=== PATIENT | female | born 1990 | race Caucasian/White ===

== ENCOUNTER 2019-10-05 07:19 | Inpatient (IN) | payer MEDICAID ==
[~2019-10-05 07:19] MED LIST: Lidocaine 1.5% with EPINEPHrine 1:200,000 5 ML Amp ONE
[2019-10-05] MEDS ORDERED: Sodium Chloride 0.9% 10 ML Syringe FLUSH PRN (07:50)
[2019-10-05] MEDS ORDERED: Ondansetron 4 MG/2 ML SDV IVPUSH PRN ×2 (07:50→10:54)
--- NOTE | 2019-10-05 07:54 | PCM.LDHP ---
L&D History of Present Illness - General Date of Service: 10/05/19 Admit Problem/Dx: Patient Status Order with Admit Dx/Problem 10/05/19 07:50 Patient Status [ADT] Routine Admission Diagnosis/Problem Admission Diagnosis/Problem Normal in third trimester Source of Information: Patient History Limitations: Reports: No Limitations - History of Present Illness Introduction:: 28 y/o at 39 2/7 wks who presents for elective IOL. Doing well today. No contractions. No concerns - Related Data Allergies/Adverse Reactions: Allergies Allergy/AdvReac Type Severity Reaction Status Date / Time No Known Allergies Allergy Verified 10/05/19 07:38 Home Medications: Home Meds Pnv No.95/Ferrous Fum/Folic AC [ Tablet] 1 each PO DAILY 12/17/17 [ History] Acetaminophen [Tylenol] 650 mg PO Q4H PRN tablet 04/09/18 [Rx] Calcium Carbonate [Tums] 500 mg PO 10/05/19 [History] Ferrous Sulfate [Iron] 325 mg PO 10/05/19 [History] Ranitidine [Zantac] 150 mg PO BID 10/05/19 [History] polyethylene glycoL 3350 [MiraLAX] 17 gm PO 10/05/19 [History] Past Medical History - Past Health History Medical/Surgical History: Denies Medical/Surgical History 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: , Spontaneous : 4 Para: 2 LMP (Approximate): Social & Family History - Family History Family Medical History: Noncontributory - Tobacco Use Smoking Status *Q: Former Smoker - Caffeine Use Caffeine Use: Reports: None - Alcohol Use Alcohol Use History: No - Recreational Drug Use Recreational Drug Use: No H&P Review of Systems - Review of Systems: Review Of Systems: See Below General: Reports: No Symptoms Pulmonary: Reports: No Symptoms Cardiovascular: Reports: No Symptoms Gastrointestinal: Reports: No Symptoms Genitourinary: Reports: No Symptoms Musculoskeletal: Reports: No Symptoms Psychiatric: Reports: No Symptoms Neurological: Reports: No Symptoms L&D Exam - Exam Exam: See Below - Vital Signs Vital Signs: Last Vital Signs Temp 36.3 C 10/05/19 07:24 Pulse 111 H 10/05/19 07:24 Resp 14 10/05/19 07:24 BP 131/82 10/05/19 07:24 Pulse Ox 98 10/05/19 07:24 Weight: 116.573 kg - OB Specific Contraction Intensity: Irritability Movement: Active Heart Tones: Present Heart Tones per Min: 135 Heart Rate (FHR) Variability: Moderate (6-25 bmp) Presentation: Vertex - Neal Score Neal Score Cervix Position: Posterior Neal Score Consistency: Soft Neal Score Effacement: 31-50% Neal Score Dilation: 1-2 cm Neal Score Infant's Station: -2 Neal Score Total: 5 - Exam General: Alert, Oriented, Cooperative Lungs: Clear to Auscultation, Normal Respiratory Effort Cardiovascular: Regular Rate, Regular Rhythm GI/Abdominal Exam: Soft, Non-Tender Genitourinary: Normal external exam Extremities: Normal Inspection Skin: Warm, Dry, Intact - Patient Data Result Diagrams: 10/05/19 08:05 - Problem List (1) 39 weeks gestation of SNOMED Code(s): 84711261 ICD Code: Z3A.39 - 39 WEEKS GESTATION OF Status: Acute Current Visit: Yes (2) GBS (group B Streptococcus carrier), +RV culture, currently SNOMED Code(s): 9385772657808, 564854207, 2738868935583 ICD Code: O99.820 - STREPTOCOCCUS B CARRIER STATE COMPLICATING Status: Acute Current Visit: Yes Problem List Initiated/Reviewed/Updated: Yes Orders Last 24hrs: Active Orders 24 hr Category Date Time Status Patient Status [ADT] Routine ADT 10/05/19 07:50 Ordered Activity as Tolerated [RC] PFP Care 10/05/19 07:50 Ordered Communication Order [RC] ASDIRECTED Care 10/05/19 07:50 Ordered Communication Order [RC] ASDIRECTED Care 10/05/19 07:50 Ordered Communication Order [RC] ASDIRECTED Care 10/05/19 07:50 Ordered Heart Tones [RC] ASDIRECTED Care 10/05/19 07:51 Ordered Monitoring [RC] INTERMITTENT Care 10/05/19 07:50 Ordered Non Stress Test [RC] PER UNIT ROUTINE Care 10/05/19 07:50 Ordered Notify Provider [RC] ASDIRECTED Care 10/05/19 07:50 Ordered Notify Provider [RC] PRN Care 10/05/19 07:50 Ordered Peripheral IV Care [RC] . DIRECTED Care 10/05/19 07:51 Ordered Vaginal Exam [RC] ASDIRECTED Care 10/05/19 07:50 Ordered Vital Signs [RC] ASDIRECTED Care 10/05/19 07:50 Ordered Regular Diet [DIET] Diet 10/05/19 Breakfast Ordered CBC W/O DIFF,HEMOGRAM [HEME] Routine Lab 10/05/19 07:50 Ordered RAPID PLASMA REAGIN,RPR [CHEM] Routine Lab 10/05/19 07:50 Ordered TYPE AND SCREEN [BBK] Routine Lab 10/05/19 07:50 Ordered Lactated Ringers [Ringers, Lactated] 1,000 ml Med 10/05/19 08:00 Ordered IV ASDIRECTED Ondansetron [Zofran] Med 10/05/19 07:50 Ordered 4 mg IVPUSH Q4H PRN Oxytocin/Lactated Ringers [Pitocin in LR 10 Units/1,000 Med 10/05/19 08:00 Ordered ML] 10 unit in 1,000 ml IV .CONTINUOUS Oxytocin/Lactated Ringers [Pitocin in LR 10 Units/1,000 Med 10/05/19 08:00 Ordered ML] 10 unit in 1,000 ml IV TITRATE Sodium Chloride 0.9% [Saline Flush] Med 10/05/19 07:50 Ordered 10 ml FLUSH ASDIRECTED PRN Electronic Heart Tones Ext w TOCO [WOMSER] Oth 10/05/19 07:50 Ordered Routine Electronic Heart Tones Internal [WOMSER] Per Unit Oth 10/05/19 07:50 Ordered Routine Peripheral IV Insertion Adult [OM.PC] Routine Oth 10/05/19 07:50 Ordered Assessment/Plan Comment:: * Labs * GBS positive, start ampicillin * Miller bulb placed and will start Pitocin. AROM when able * Pain management per patient preference * Anticipate
[2019-10-05] MEDS ORDERED: Oxytocin/Lactated Ringers 10 UNIT/1,000 ML BAG IV SCH ×2 (08:00)
[2019-10-05] MEDS ORDERED: Ampicillin 2 GM in Sodium Chloride 0.9% 100 ML IV ONE (08:02)
[2019-10-05] MEDS ORDERED: Ampicillin 2 GM AdvVial IV ONE (08:06)
[2019-10-05] MEDS: Lactated Ringers 1,000 ML IV SCH ×3 (08:08→16:01)
[2019-10-05] MEDS ORDERED: fentaNYL 100 MCG/2 ML SDV EPIDUR PRN (10:54)
[2019-10-05] MEDS ORDERED: ePHEDrine 50 MG/ML SDV IVPUSH PRN (10:54)
--- NOTE | 2019-10-05 10:57 | PCM.PREANE ---
<Keisha Rush - Last Filed: 10/05/19 10:55> Preanesthetic Assessment - Anesthesia/Transfusion/Family Hx Anesthesia History: Prior Anesthesia Without Reaction Family History of Anesthesia Reaction: No Transfusion History: No Prior Transfusion(s) Intubation History: Unknown - Review of Systems General: No Symptoms Pulmonary: No Symptoms Cardiovascular: No Symptoms Gastrointestinal: No Symptoms (GERD) Neurological: No Symptoms Other: Reports: None - Physical Assessment NPO Status Date: 10/05/19 Vital Signs: Last Vital Signs Temp 97.4 F 10/05/19 07:24 Pulse 111 H 10/05/19 07:24 Resp 14 10/05/19 07:24 BP 131/82 10/05/19 07:24 Pulse Ox 98 10/05/19 07:24 Height: 1.7 m Weight: 116.573 kg ASA Class: 2 Mental Status: Alert & Oriented x3 Airway Class: Mallampati = 2 Dentition: Reports: Normal Dentition, Caries Thyro-Mental Finger Breadths: 3 Mouth Opening Finger Breadths: 3 ROM/Head Extension: Full Lungs: Clear to Auscultation, Normal Respiratory Effort Cardiovascular: Regular Rate, Regular Rhythm, No Murmurs - Lab Values: Laboratory Last Values WBC 6.42 K/mm3 (3.98-10.04) 10/05/19 08:05 RBC 4.49 M/mm3 (3.98-5.22) 10/05/19 08:05 Hgb 12.4 gm/dl (11.2-15.7) D 10/05/19 08:05 Hct 37.8 % (34.1-44.9) 10/05/19 08:05 MCV 84.2 fl (79.4-94.8) D 10/05/19 08:05 MCH 27.6 pg (25.6-32.2) 10/05/19 08:05 MCHC 32.8 g/dl (32.2-35.5) 10/05/19 08:05 RDW Std Deviation 45.2 fL (36.4-46.3) 10/05/19 08:05 Plt Count 193 K/mm3 (182-369) 10/05/19 08:05 MPV 11.1 fl (9.4-12.3) 10/05/19 08:05 Blood Type A POSITIVE 10/05/19 08:05 Gel Antibody Screen Negative 10/05/19 08:05 Above labs reviewed and noted and within acceptable ranges to proceed with epidural if desired. - Allergies Allergies/Adverse Reactions: Allergies Allergy/AdvReac Type Severity Reaction Status Date / Time No Known Allergies Allergy Verified 10/05/19 07:38 - Anesthesia Plan Pre-Op Medication Ordered: None - Acknowledgements Anesthesia Type Planned: Epidural Pt an Appropriate Candidate for the Planned Anesthesia: Yes Alternatives and Risks of Anesthesia Discussed w Pt/Guardian: Yes Pt/Guardian Understands and Agrees with Anesthesia Plan: Yes PreAnesthesia Questionnaire - Past Health History Medical/Surgical History: Denies Medical/Surgical History Cardiovascular History: Reports: None Respiratory History: Reports: None Gastrointestinal History: Reports: Other (See Below) Other Gastrointestinal History: constipation with Genitourinary History: Reports: STD, Other (See Below) Other Genitourinary History: history of chlamydia 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: , Spontaneous - SUBSTANCE USE Smoking Status *Q: Former Smoker Tobacco Use Within Last Twelve Months: Cigarettes Recreational Drug Use History: No - HOME MEDS Home Medications: Home Meds Pnv No.95/Ferrous Fum/Folic AC [ Tablet] 1 each PO DAILY 12/17/17 [ History] Acetaminophen [Tylenol] 650 mg PO Q4H PRN tablet 04/09/18 [Rx] Calcium Carbonate [Tums] 500 mg PO 10/05/19 [History] Ferrous Sulfate [Iron] 325 mg PO 10/05/19 [History] Ranitidine [Zantac] 150 mg PO BID 10/05/19 [History] polyethylene glycoL 3350 [MiraLAX] 17 gm PO 10/05/19 [History] - CURRENT (IN HOUSE) MEDS Current Meds: Current Medications Ephedrine Sulfate (Ephedrine Sulfate) 5 mg IVPUSH ASDIRECTED PRN PRN Reason: Hypotension Fentanyl (Sublimaze) 100 mcg EPIDUR Q3H PRN PRN Reason: Pain Fentanyl/Bupivacaine HCl (Fentanyl/Bupivacaine/Ns 2 Mcg-0.125% 100 Ml) 100 ml EPIDUR ASDIRECTED FABIAN Lactated Ringer's (Ringers, Lactated) 1,000 mls @ 40 mls/hr IV ASDIRECTED FABIAN Last Admin: 10/05/19 08:08 Dose: 40 mls/hr Oxytocin/Lactated Ringer's (Pitocin In Lr 10 Units/1,000 Ml) 10 unit in 1,000 mls @ 12 mls/hr IV TITRATE FABIAN; Protocol Last Titration: 10/05/19 10:47 Dose: 12 munits/min, 72 mls/hr Oxytocin/Lactated Ringer's (Pitocin In Lr 10 Units/1,000 Ml) 10 unit in 1,000 mls @ 500 mls/hr IV .CONTINUOUS FABIAN Ampicillin Sodium 1 gm/ Sodium (Chloride) 100 mls @ 200 mls/hr IV Q4H AFBIAN Ondansetron HCl (Zofran) 4 mg IVPUSH Q4H PRN PRN Reason: Nausea/Vomiting Ondansetron HCl (Zofran) 4 mg IVPUSH ONETIME PRN PRN Reason: Nausea/Vomiting Sodium Chloride (Saline Flush) 10 ml FLUSH ASDIRECTED PRN PRN Reason: Keep Vein Open Discontinued Medications Ampicillin Sodium (Ampicillin) Confirm Administered Dose 2 gm IV .STThe [employer]-MED ONE Stop: 10/05/19 08:07 Last Admin: 10/05/19 08:11 Dose: Not Given Ampicillin Sodium 2 gm/ Sodium (Chloride) 100 mls @ 200 mls/hr IV ONETIME ONE Stop: 10/05/19 08:31 Last Admin: 10/05/19 08:11 Dose: 200 mls/hr <Jhonny Melchor - Last Filed: 10/05/19 11:18> Preanesthetic Assessment - Anesthesia/Transfusion/Family Hx Anesthesia History: Prior Anesthesia Without Reaction Family History of Anesthesia Reaction: No Transfusion History: No Prior Transfusion(s) Intubation History: Unknown - Review of Systems General: No Symptoms Pulmonary: No Symptoms Cardiovascular: No Symptoms Gastrointestinal: No Symptoms Neurological: No Symptoms Other: Reports: None - Physical Assessment ASA Class: 2 Mental Status: Alert & Oriented x3 Airway Class: Mallampati = 2 Dentition: Reports: Normal Dentition ROM/Head Extension: Full Lungs: Clear to Auscultation, Normal Respiratory Effort Cardiovascular: Regular Rate, Regular Rhythm - Acknowledgements Anesthesia Type Planned: Epidural Pt an Appropriate Candidate for the Planned Anesthesia: Yes Alternatives and Risks of Anesthesia Discussed w Pt/Guardian: Yes Pt/Guardian Understands and Agrees with Anesthesia Plan: Yes
[2019-10-05] MEDS ORDERED: Bupivacaine/fentaNYL/NS 100 ML Bag EPIDUR SCH (11:00)
[2019-10-05] MEDS ORDERED: Ampicillin 1 GM AdvVial IV ONE (11:56)
[2019-10-05] MEDS: Ampicillin 1 GM in Sodium Chloride 0.9% 100 ML IV SCH ×2 (12:00→16:02)
--- NOTE | 2019-10-05 18:44 | PCM.DEL ---
L & D Note - General Info Date of Service: 10/05/19 - Delivery Note Labor: Induced by ARM Cervical Ripening Method: Balloon Device, Oxytocin Delivery Outcome: Livebirth Delivery Method: Spontaneous Vaginal Delivery-Single Infant Delivery Mode: Spontaneous Presentation: Right Occiput Anterior (TAMI) Nuchal Cord: Present, Reduced Anesthesia Type: Epidural Amniotic Fluid Description: Clear Episiotomy Type: None Laceration: None Placenta: Intact, Spontaneous Cord: 3 Vessels Estimated Blood Loss: 300 Resuscitation Needed: Yes : Bulb Syringe, Stimulated, Warmed, [place] Used, Warmer Used Delivery Comments (Free Text/Narrative):: Patient found to be complete and began pushing. With maternal pushing effort head delivered from TAMI presentation. Nuchal cord present and reduced. With gentle downward traction shoulder did not deliver. Patient put in deep McRobert's adn with additional attempt anterior shoulder did delivery. Delay of about 30 seconds. Remainder of body then delivered. placed on maternal abdomen. Cord clamped and cut. Cord blood obtained. Placenta allowed time to separate and expelled intact. Inspection of the perineum showed no lacerations - General Info Date of Service: 10/05/19 - Patient Data Vitals - Most Recent: Last Vital Signs Temp 36.3 C 10/05/19 07:24 Pulse 111 H 10/05/19 07:24 Resp 14 10/05/19 07:24 BP 131/82 10/05/19 07:24 Pulse Ox 98 10/05/19 07:24 Weight - Most Recent: 116.573 kg I&O - Last 24 Hours: Intake & Output 10/05/19 10/05/19 10/05/19 06:59 14:59 22:59 Intake Total 1200 2250 Output Total 150 Balance 1200 2100 Lab Results Last 24 Hours: Laboratory Results - last 24 hr 10/05/19 10/05/19 Range/Units 08:05 08:05 WBC 6.42 (3.98-10.04) K/mm3 RBC 4.49 (3.98-5.22) M/mm3 Hgb 12.4 D (11.2-15.7) gm/dl Hct 37.8 (34.1-44.9) % MCV 84.2 D (79.4-94.8) fl MCH 27.6 (25.6-32.2) pg MCHC 32.8 (32.2-35.5) g/dl RDW Std Deviation 45.2 (36.4-46.3) fL Plt Count 193 (182-369) K/mm3 MPV 11.1 (9.4-12.3) fl Blood Type A POSITIVE Gel Antibody Screen Negative Med Orders - Current: Current Medications Ephedrine Sulfate (Ephedrine Sulfate) 5 mg IVPUSH ASDIRECTED PRN PRN Reason: Hypotension Fentanyl (Sublimaze) 100 mcg EPIDUR Q3H PRN PRN Reason: Pain Last Admin: 10/05/19 14:53 Dose: 100 mcg Fentanyl/Bupivacaine HCl (Fentanyl/Bupivacaine/Ns 2 Mcg-0.125% 100 Ml) 100 ml EPIDUR ASDIRECTED FABIAN Last Admin: 10/05/19 14:54 Dose: 100 ml Lactated Ringer's (Ringers, Lactated) 1,000 mls @ 40 mls/hr IV ASDIRECTED FABIAN Last Admin: 10/05/19 16:01 Dose: 40 mls/hr Oxytocin/Lactated Ringer's (Pitocin In Lr 10 Units/1,000 Ml) 10 unit in 1,000 mls @ 12 mls/hr IV TITRATE FABIAN; Protocol Last Titration: 10/05/19 18:00 Dose: 500 mls/hr Oxytocin/Lactated Ringer's (Pitocin In Lr 10 Units/1,000 Ml) 10 unit in 1,000 mls @ 500 mls/hr IV .CONTINUOUS FABIAN Ampicillin Sodium 1 gm/ Sodium (Chloride) 100 mls @ 200 mls/hr IV Q4H FABIAN Last Admin: 10/05/19 16:02 Dose: 200 mls/hr Ondansetron HCl (Zofran) 4 mg IVPUSH Q4H PRN PRN Reason: Nausea/Vomiting Ondansetron HCl (Zofran) 4 mg IVPUSH ONETIME PRN PRN Reason: Nausea/Vomiting Sodium Chloride (Saline Flush) 10 ml FLUSH ASDIRECTED PRN PRN Reason: Keep Vein Open Discontinued Medications Ampicillin Sodium (Ampicillin) Confirm Administered Dose 2 gm IV .STK-MED ONE Stop: 10/05/19 08:07 Last Admin: 10/05/19 08:11 Dose: Not Given Ampicillin Sodium (Ampicillin) Confirm Administered Dose 1 gm IV .STK-MED ONE Stop: 10/05/19 11:57 Last Admin: 10/05/19 11:59 Dose: Not Given Ampicillin Sodium 2 gm/ Sodium (Chloride) 100 mls @ 200 mls/hr IV ONETIME ONE Stop: 10/05/19 08:31 Last Admin: 10/05/19 08:11 Dose: 200 mls/hr - Problem List & Annotations (1) 39 weeks gestation of SNOMED Code(s): 36378000 Code(s): Z3A.39 - 39 WEEKS GESTATION OF Status: Acute Current Visit: Yes (2) GBS (group B Streptococcus carrier), +RV culture, currently SNOMED Code(s): 4692134840906, 263203770, 5940058905191 Code(s): O99.820 - STREPTOCOCCUS B CARRIER STATE COMPLICATING Status: Acute Current Visit: Yes (3) Shoulder dystocia, delivered SNOMED Code(s): 322591476, 047677214 Code(s): O66.0 - OBSTRUCTED LABOR DUE TO SHOULDER DYSTOCIA Status: Acute Current Visit: Yes (4) Vaginal delivery SNOMED Code(s): 746113856 Code(s): O80 - ENCOUNTER FOR FULL-TERM UNCOMPLICATED DELIVERY Status: Acute Current Visit: No - Problem List Review Problem List Initiated/Reviewed/Updated: Yes - My Orders Last 24 Hours: My Active Orders 10/05/19 07:50 Patient Status [ADT] Routine Activity as Tolerated [RC] PFP Communication Order [RC] ASDIRECTED Communication Order [RC] ASDIRECTED Communication Order [RC] ASDIRECTED Monitoring [RC] INTERMITTENT Non Stress Test [RC] PER UNIT ROUTINE Notify Provider [RC] ASDIRECTED Notify Provider [RC] PRN Vaginal Exam [RC] ASDIRECTED Vital Signs [RC] ASDIRECTED Ondansetron [Zofran] 4 mg IVPUSH Q4H PRN Sodium Chloride 0.9% [Saline Flush] 10 ml FLUSH ASDIRECTED PRN Electronic Heart Tones Ext w TOCO [WOMSER] Routine Electronic Heart Tones Internal [WOMSER] Per Unit Routine Peripheral IV Insertion Adult [OM.PC] Routine 10/05/19 07:51 Heart Tones [RC] ASDIRECTED Peripheral IV Care [RC] . DIRECTED 10/05/19 08:00 Lactated Ringers [Ringers, Lactated] 1,000 ml IV ASDIRECTED Oxytocin/Lactated Ringers [Pitocin in LR 10 Units/1,000 ML] 10 unit in 1,000 ml IV .CONTINUOUS Oxytocin/Lactated Ringers [Pitocin in LR 10 Units/1,000 ML] 10 unit in 1,000 ml IV TITRATE 10/05/19 08:05 RAPID PLASMA REAGIN,RPR [CHEM] Routine 10/05/19 12:00 Ampicillin 1 gm Sodium Chloride 0.9% [Normal Saline] 100 ml IV Q4H 10/05/19 Breakfast Regular Diet [DIET] - Assessment Assessment:: PPD#0 - Plan Plan:: * Routine cares * Discharge home in 1-2 days
[2019-10-05] MEDS ORDERED: Witch Hazel Medicated Pads 40/Jar TOP PRN (18:53)
[2019-10-05] MEDS ORDERED: Acetaminophen 325 MG Tab PO PRN (18:53)
[2019-10-05] MEDS ORDERED: Benzocaine/Menthol 20%-0.5% Spray 56 GM Canister TOP PRN (18:53)
[2019-10-05] MEDS ORDERED: Docusate Sodium 100 MG Cap PO PRN (18:53)
[2019-10-05] MEDS: Ibuprofen 600 MG Tab PO PRN (21:46)
--- NOTE | 2019-10-06 07:14 | PCM.DCSUM1 ---
Discharge Summary - Hospital Course Diagnosis: Stroke: No - Discharge Data Discharge Date: 10/06/19 Discharge Disposition: Home, Self-Care 01 Condition: Good - Referral to Home Health Primary Care Physician: Arely Magaña MD - Patient Instructions Diet: Usual Diet as Tolerated Activity: No Strenuous Activities Driving: May Drive Today Showering/Bathing: May Shower Wound/Incision Care: Keep Operative Site/Wound Site Clean and Dry Notify Provider of: Fever - Discharge Plan *PRESCRIPTION DRUG MONITORING PROGRAM REVIEWED*: No *COPY OF PRESCRIPTION DRUG MONITORING REPORT IN PATIENT RIMA: No Home Medications: Home Meds Pnv No.95/Ferrous Fum/Folic AC [ Tablet] 1 each PO DAILY 12/17/17 [ History] Acetaminophen [Tylenol] 650 mg PO Q4H PRN tablet 04/09/18 [Rx] Calcium Carbonate [Tums] 500 mg PO 10/05/19 [History] Ferrous Sulfate [Iron] 325 mg PO 10/05/19 [History] Ranitidine [Zantac] 150 mg PO BID 10/05/19 [History] polyethylene glycoL 3350 [MiraLAX] 17 gm PO 10/05/19 [History] Referrals: Arely Magaña MD [Primary Care Provider] - (2 weeks) - Discharge Summary/Plan Comment DC Time >30 min.: No - General Info Date of Service: 10/06/19 Functional Status: Reports: Pain Controlled - Review of Systems General: Reports: No Symptoms HEENT: Reports: No Symptoms Pulmonary: Reports: No Symptoms Cardiovascular: Reports: No Symptoms Gastrointestinal: Reports: No Symptoms Genitourinary: Reports: No Symptoms Musculoskeletal: Reports: No Symptoms Skin: Reports: No Symptoms Neurological: Reports: No Symptoms Psychiatric: Reports: No Symptoms - Patient Data Vitals - Most Recent: Last Vital Signs Temp 36.6 C 10/06/19 02:40 Pulse 70 10/06/19 02:40 Resp 18 10/06/19 02:40 BP 120/62 10/06/19 02:40 Pulse Ox 97 10/06/19 02:40 Weight - Most Recent: 116.573 kg I&O - Last 24 hours: Intake & Output 10/05/19 10/06/19 10/06/19 22:59 06:59 14:59 Intake Total 2250 1000 Output Total 150 Balance 2100 1000 Lab Results - Last 24 hrs: Laboratory Results - last 24 hr 10/05/19 10/05/19 10/05/19 Range/Units 08:05 08:05 08:05 WBC 6.42 (3.98-10.04) K/mm3 RBC 4.49 (3.98-5.22) M/mm3 Hgb 12.4 D (11.2-15.7) gm/dl Hct 37.8 (34.1-44.9) % MCV 84.2 D (79.4-94.8) fl MCH 27.6 (25.6-32.2) pg MCHC 32.8 (32.2-35.5) g/dl RDW Std Deviation 45.2 (36.4-46.3) fL Plt Count 193 (182-369) K/mm3 MPV 11.1 (9.4-12.3) fl RPR Non-reactive (NONREACTIVE) Blood Type A POSITIVE Gel Antibody Screen Negative Med Orders - Current: Current Medications Acetaminophen (Tylenol) 650 mg PO Q4H PRN PRN Reason: mild pain or fever Benzocaine/Menthol (Dermoplast Pain Relief [place]) 0 gm TOP ASDIRECTED PRN PRN Reason: Perineal Comfort Measure Docusate Sodium (Colace) 100 mg PO BID PRN PRN Reason: Constipation Ibuprofen (Motrin) 600 mg PO Q6H PRN PRN Reason: Mild pain or fever Last Admin: 10/05/19 21:46 Dose: 600 mg Witch [place] (Tucks) 1 pad TOP ASDIRECTED PRN PRN Reason: Perineal Comfort Measure Discontinued Medications Ampicillin Sodium (Ampicillin) Confirm Administered Dose 2 gm IV .STK-MED ONE Stop: 10/05/19 08:07 Last Admin: 10/05/19 08:11 Dose: Not Given Ampicillin Sodium (Ampicillin) Confirm Administered Dose 1 gm IV .STK-MED ONE Stop: 10/05/19 11:57 Last Admin: 10/05/19 11:59 Dose: Not Given Ephedrine Sulfate (Ephedrine Sulfate) 5 mg IVPUSH ASDIRECTED PRN PRN Reason: Hypotension Fentanyl (Sublimaze) 100 mcg EPIDUR Q3H PRN PRN Reason: Pain Last Admin: 10/05/19 14:53 Dose: 100 mcg Fentanyl/Bupivacaine HCl (Fentanyl/Bupivacaine/Ns 2 Mcg-0.125% 100 Ml) 100 ml EPIDUR ASDIRECTED FABIAN Last Admin: 10/05/19 14:54 Dose: 100 ml Lactated Ringer's (Ringers, Lactated) 1,000 mls @ 40 mls/hr IV ASDIRECTED FABIAN Last Admin: 10/05/19 16:01 Dose: 40 mls/hr Oxytocin/Lactated Ringer's (Pitocin In Lr 10 Units/1,000 Ml) 10 unit in 1,000 mls @ 12 mls/hr IV TITRATE FABIAN; Protocol Last Titration: 10/05/19 20:00 Dose: Infused Oxytocin/Lactated Ringer's (Pitocin In Lr 10 Units/1,000 Ml) 10 unit in 1,000 mls @ 500 mls/hr IV .CONTINUOUS FABIAN Ampicillin Sodium 2 gm/ Sodium (Chloride) 100 mls @ 200 mls/hr IV ONETIME ONE Stop: 10/05/19 08:31 Last Admin: 10/05/19 08:11 Dose: 200 mls/hr Ampicillin Sodium 1 gm/ Sodium (Chloride) 100 mls @ 200 mls/hr IV Q4H FABIAN Last Admin: 10/05/19 16:02 Dose: 200 mls/hr Ondansetron HCl (Zofran) 4 mg IVPUSH Q4H PRN PRN Reason: Nausea/Vomiting Ondansetron HCl (Zofran) 4 mg IVPUSH ONETIME PRN PRN Reason: Nausea/Vomiting Sodium Chloride (Saline Flush) 10 ml FLUSH ASDIRECTED PRN PRN Reason: Keep Vein Open - Exam General: Reports: Alert, Oriented HEENT: Reports: Pupils Equal, Pupils Reactive, EOMI, Mucous Membr. Moist/[place] Neck: Reports: Supple Lungs: Reports: Clear to Auscultation, Normal Respiratory Effort Cardiovascular: Reports: Regular Rate, Regular Rhythm GI/Abdominal Exam: Normal Bowel Sounds, Soft, Non-Tender, No Organomegaly, No Distention, No Abnormal Bruit, No Mass, Pelvis Stable Rectal (Female) Exam: Normal Exam Back Exam: Reports: Normal Inspection, Full Range of Motion Extremities: Normal Inspection, Normal Range of Motion, Non-Tender, No Pedal Edema, Normal Capillary Refill Skin: Reports: Warm, Dry, Intact Wound/Incisions: Reports: Healing Well Neurological: Reports: No New Focal Deficit Psy/Mental Status: Reports: Alert, Normal Affect, Normal Mood
--- NOTE | 2019-10-06 09:24 | PCM48HPAN ---
Post Anesthesia Note - EVALUATION WITHIN 48HRS OF ANESTHETIC Vital Signs in Normal Range: Yes Patient Participated in Evaluation: Yes Respiratory Function Stable: Yes Airway Patent: Yes Cardiovascular Function Stable: Yes Hydration Status Stable: Yes Pain Control Satisfactory: Yes Nausea and Vomiting Control Satisfactory: Yes Mental Status Recovered: Yes Vital Signs: Last Vital Signs Temp 36.6 C 10/06/19 08:40 Pulse 85 10/06/19 08:40 Resp 14 10/06/19 08:40 BP 119/70 10/06/19 08:40 Pulse Ox 98 10/06/19 08:40
[2019-10-06] MEDS: Ibuprofen 600 MG Tab PO PRN (09:34)
[2019-10-06 17:25] VITALS: BP 116/89; PULSE 82
== END 2019-10-06 18:58 | disposition home or self-care (01) | DRG 807 ==
LOC: JD.OB 07:19 → OBSVTOIN 18:15 → JD.OB 18:16
PROVIDERS: ADMIT Obstetrics & Gynecology; ATTEND Obstetrics & Gynecology
PROC: 10E0XZZ Delivery of Products of Conception, External Approach (ICD-10-PCS; principal; 2019-10-05)
PROC: 10907ZC Drainage of Amniotic Fluid, Therapeutic from Products of Conception, Via Natural or Artificial Opening (ICD-10-PCS; 2019-10-05)
PROC: 3E033VJ Introduction of Other Hormone into Peripheral Vein, Percutaneous Approach (ICD-10-PCS; 2019-10-05)
PROC: 3E0P7VZ Introduction of Hormone into Female Reproductive, Via Natural or Artificial Opening (ICD-10-PCS; 2019-10-05)
PROC: 3E0R3BZ Introduction of Anesthetic Agent into Spinal Canal, Percutaneous Approach (ICD-10-PCS; 2019-10-05)
DX: O99.824 Streptococcus B carrier state complicating childbirth (principal); Z37.0 Single live birth; O69.81X0 Labor and delivery complicated by cord around neck, without compression, not applicable or unspecified; O66.0 Obstructed labor due to shoulder dystocia; Z3A.39 39 weeks gestation of pregnancy; Z87.891 Personal history of nicotine dependence
CPT/HCPCS: 01967; 36415; 51702; 59025; 59409; 85027; 86592; 86850; 86900; 86901; A9270-GY; J0290; J2590; J3010; J7050; J7120